=== PATIENT | male | born 1965 | race Caucasian/White ===

== ENCOUNTER 2016-08-16 13:51 | Outpatient (CLI) | payer SELFPAY | END 2016-08-16 13:52 | LOC: LAB 13:51 | PROVIDERS: ATTEND Internal Medicine Cardiovascular Disease | DX: Z95.4 Presence of other heart-valve replacement (principal); Z79.01 Long term (current) use of anticoagulants | CPT/HCPCS: 36415; 85610 ==

== ENCOUNTER 2016-09-20 09:00 | Outpatient (CLI) | payer SELFPAY | END 2016-09-20 09:10 | LOC: LAB 09:00 | PROVIDERS: ATTEND Internal Medicine Cardiovascular Disease | DX: Z51.81 Encounter for therapeutic drug level monitoring (principal); Z79.01 Long term (current) use of anticoagulants | CPT/HCPCS: 36415; 85610 ==

== ENCOUNTER 2016-10-26 13:33 | Outpatient (CLI) | payer SELFPAY | END 2016-10-26 13:34 | LOC: LAB 13:33 | PROVIDERS: ATTEND Internal Medicine Cardiovascular Disease | DX: Z51.81 Encounter for therapeutic drug level monitoring (principal); Z79.01 Long term (current) use of anticoagulants; Z95.2 Presence of prosthetic heart valve | CPT/HCPCS: 36415; 85610 ==

== ENCOUNTER 2016-11-14 10:47 | Outpatient (CLI) | payer SELFPAY | END 2016-11-14 10:50 | LOC: LAB 10:47 | PROVIDERS: ATTEND Internal Medicine Cardiovascular Disease | DX: Z51.81 Encounter for therapeutic drug level monitoring (principal); Z79.01 Long term (current) use of anticoagulants; Z95.2 Presence of prosthetic heart valve | CPT/HCPCS: 36415; 85610 ==

== ENCOUNTER 2016-11-28 09:07 | Outpatient (CLI) | payer SELFPAY | END 2016-11-28 09:10 | LOC: LAB 09:07 | PROVIDERS: ATTEND Internal Medicine Cardiovascular Disease | DX: Z79.01 Long term (current) use of anticoagulants (principal); Z95.2 Presence of prosthetic heart valve | CPT/HCPCS: 36415; 85610 ==

== ENCOUNTER 2016-12-26 09:02 | Outpatient (CLI) | payer SELFPAY | END 2016-12-26 09:03 | LOC: LAB 09:02 | PROVIDERS: ATTEND Internal Medicine Cardiovascular Disease | DX: Z79.01 Long term (current) use of anticoagulants (principal) | CPT/HCPCS: 36415; 85610 ==

== ENCOUNTER 2017-01-09 11:18 | Outpatient (CLI) | payer SELFPAY | END 2017-01-09 11:20 | LOC: LAB 11:18 | PROVIDERS: ATTEND Internal Medicine Cardiovascular Disease | DX: Z79.01 Long term (current) use of anticoagulants (principal) | CPT/HCPCS: 36415; 85610 ==

== ENCOUNTER → 2017-01-20 | Outpatient (CLI) | payer SELFPAY | LOC: LAB 08:40 | PROVIDERS: ATTEND Internal Medicine Cardiovascular Disease | DX: Z79.01 Long term (current) use of anticoagulants (principal) | CPT/HCPCS: 36415; 85610 ==

== ENCOUNTER 2017-02-17 08:24 | Outpatient (CLI) | payer SELFPAY | END 2017-02-17 08:25 | LOC: LAB 08:24 | PROVIDERS: ATTEND Internal Medicine Cardiovascular Disease | DX: Z79.01 Long term (current) use of anticoagulants (principal) | CPT/HCPCS: 36415; 85610 ==

== ENCOUNTER 2017-03-17 09:31 | Outpatient (CLI) | payer SELFPAY | END 2017-03-17 09:32 | LOC: LAB 09:31 | PROVIDERS: ATTEND Internal Medicine Cardiovascular Disease | DX: Z79.01 Long term (current) use of anticoagulants (principal) | CPT/HCPCS: 36415; 85610 ==

== ENCOUNTER → 2017-05-08 | Outpatient (CLI) | payer SELFPAY | LOC: LAB 15:59 | PROVIDERS: ATTEND Internal Medicine Cardiovascular Disease | DX: Z79.01 Long term (current) use of anticoagulants (principal); Z95.2 Presence of prosthetic heart valve | CPT/HCPCS: 36415; 85610 ==

== ENCOUNTER 2017-05-30 09:10 | Outpatient (CLI) | payer SELFPAY | END 2017-05-30 10:00 | LOC: LAB 09:10 | PROVIDERS: ATTEND Internal Medicine Cardiovascular Disease | DX: Z79.01 Long term (current) use of anticoagulants (principal) | CPT/HCPCS: 36415; 85610 ==

== ENCOUNTER 2017-06-12 09:24 | Outpatient (CLI) | payer SELFPAY | END 2017-06-12 09:25 | LOC: LAB 09:24 | PROVIDERS: ATTEND Internal Medicine Cardiovascular Disease | DX: Z79.01 Long term (current) use of anticoagulants (principal) | CPT/HCPCS: 36415; 85610 ==

== ENCOUNTER 2017-08-21 09:18 | Outpatient (CLI) | payer SELFPAY | END 2017-08-21 09:20 | LOC: LAB 09:18 | PROVIDERS: ATTEND Internal Medicine Cardiovascular Disease | DX: Z79.01 Long term (current) use of anticoagulants (principal); Z95.2 Presence of prosthetic heart valve | CPT/HCPCS: 36415; 85610 ==

== ENCOUNTER 2017-09-11 08:30 | Outpatient (CLI) | payer SELFPAY | END 2017-09-11 08:32 | LOC: LAB 08:30 | PROVIDERS: ATTEND Internal Medicine Cardiovascular Disease | DX: Z95.2 Presence of prosthetic heart valve (principal); Z79.899 Other long term (current) drug therapy | CPT/HCPCS: 36415; 85610 ==

== ENCOUNTER 2017-09-25 10:36 | Outpatient (CLI) | payer SELFPAY | END 2017-09-25 13:30 | LOC: LAB 10:36 | PROVIDERS: ATTEND Internal Medicine Cardiovascular Disease | DX: Z79.899 Other long term (current) drug therapy (principal); Z95.2 Presence of prosthetic heart valve | CPT/HCPCS: 36415; 85610 ==

== ENCOUNTER 2017-10-16 08:54 | Outpatient (CLI) | payer SELFPAY | END 2017-10-16 08:55 | LOC: LAB 08:54 | PROVIDERS: ATTEND Internal Medicine Cardiovascular Disease | DX: Z79.899 Other long term (current) drug therapy (principal); Z95.2 Presence of prosthetic heart valve | CPT/HCPCS: 36415; 85610 ==

== ENCOUNTER 2018-04-24 10:31 | Outpatient (CLI) | payer SELFPAY | END 2018-04-24 10:33 | LOC: LAB 10:31 | PROVIDERS: ATTEND Internal Medicine | DX: Z79.01 Long term (current) use of anticoagulants (principal); Z95.2 Presence of prosthetic heart valve | CPT/HCPCS: 36415; 85610 ==

== ENCOUNTER 2018-05-31 12:38 | Outpatient (CLI) | payer SELFPAY | END 2018-05-31 12:44 | disposition home or self-care (01) | LOC: LAB 12:38 | PROVIDERS: ATTEND Internal Medicine | DX: Z79.01 Long term (current) use of anticoagulants (principal) | CPT/HCPCS: 36415; 85610 ==

== ENCOUNTER 2018-06-26 12:31 | Outpatient (CLI) | payer SELFPAY | END 2018-06-26 12:33 | LOC: LAB 12:31 | PROVIDERS: ATTEND Internal Medicine | DX: Z79.01 Long term (current) use of anticoagulants (principal); Z95.4 Presence of other heart-valve replacement | CPT/HCPCS: 36415; 85610 ==

== ENCOUNTER 2018-07-31 14:57 | Outpatient (CLI) | payer SELFPAY | END 2018-07-31 15:00 | LOC: LAB 14:57 | PROVIDERS: ATTEND Internal Medicine | DX: Z79.01 Long term (current) use of anticoagulants (principal); Z95.2 Presence of prosthetic heart valve | CPT/HCPCS: 36415; 85610 ==

== ENCOUNTER 2018-09-10 08:47 | Outpatient (CLI) | payer SELFPAY | END 2018-09-10 08:50 | LOC: LAB 08:47 | PROVIDERS: ATTEND Internal Medicine | DX: Z79.01 Long term (current) use of anticoagulants (principal); Z95.2 Presence of prosthetic heart valve | CPT/HCPCS: 36415; 85610 ==